=== PATIENT | male | born 1945 | race Two or more races ===

== ENCOUNTER 2018-06-03 13:23 | Inpatient (IN) | payer OTHER ==
[~2018-06-03] VITALS: Ht 177.8 cm; Wt 90.7 kg
[~2018-06-03 13:23] MED LIST: GLIMEPIRIDE4 MG PO; INVANZ1 GM IV; LIPITOR20 MG PO; NEURONTIN800 MG PO; VANCOMYCIN1.25 GM/21 IV; VASOTEC5 MG PO; XARELTO20 MG PO
[2018-06-03] MEDS ORDERED: COUMADIN7.5 MG PO (13:31)
[2018-06-03] MEDS ORDERED: MELATONIN10 MG PO (13:31)
[2018-06-03] MEDS ORDERED: COUMADIN10 MG PO (13:31)
[2018-06-03] MEDS ORDERED: GLUCOTROL10 MG PO (13:32)
[2018-06-03] MEDS ORDERED: TAMS0.4C PO (13:32)
[2018-06-03] MEDS ORDERED: PROSCAR5 MG PO (13:33)
--- NOTE | 2018-06-03 13:33 | NUR ---
PT REFERIDO POR DR FEMI DUBON PARA ADMISION POR [facility] EN [facility].
== END 2018-06-08 23:13 | disposition home or self-care (01) | DRG 638 ==
LOC: ER 13:23 → SEC-K 21:15 → MEDI 21:15
PROVIDERS: ADMIT Internal Medicine
PROC: CF261ZZ Tomographic (Tomo) Nuclear Medicine Imaging of Liver and Spleen using Technetium 99m (Tc-99m) (ICD-10-PCS; principal; 2018-06-07)
DX: E11.621 Type 2 diabetes mellitus with foot ulcer (principal); L97.528 Non-pressure chronic ulcer of other part of left foot with other specified severity; E11.42 Type 2 diabetes mellitus with diabetic polyneuropathy; Z16.12 Extended spectrum beta lactamase (ESBL) resistance; I10 Essential (primary) hypertension; N40.0 Benign prostatic hyperplasia without lower urinary tract symptoms; D69.49 Other primary thrombocytopenia; D70.8 Other neutropenia; D72.818 Other decreased white blood cell count

== ENCOUNTER 2018-08-02 10:15 | Inpatient (IN) | payer OTHER ==
[~2018-08-02] VITALS: Ht 180.3 cm; Wt 90.7 kg
[~2018-08-02 10:15] MED LIST changes: +COUMADIN10 MG PO; +COUMADIN7.5 MG PO; +GLUCOTROL10 MG PO; +MELATONIN10 MG PO; +PROSCAR5 MG PO; +TAMS0.4C PO
--- NOTE | 2018-08-02 10:21 | NUR ---
PACIENTE MASCULINO ALERTA,ORIENTADO EN LEANDRO ESFERAS,AMBULANDO SIN DIFICULTAD,EN COMPANIA DE FAMILIAR. PACIENTE REFIERE REFERIDO MEDICO DE DR.LOPEZ DUBON PARA ADMISION POR [facility] INFECTADA EN [facility].
[2018-08-02] MEDS ORDERED: LUMIGAN2.5 M1 (10:27)
[2018-08-02] MEDS ORDERED: ISTALOL2.5 ML (10:28)
--- NOTE | 2018-08-02 11:40 | NUR ---
SE RECIBE PTE MASCULINO DE 73 YRS ALERTA CONCIENTE Y TRANQUILON EN COMPANIA DE FAMIILIAR. PTE ES EVALUADA POR EL , ROBBNO QUIEN ORDENA TRATMAIETO LA CUAL SE EJECUTA POR MS.BIRRIEL RAMOS . SE MANTIENE EN OBSERVACIONY SE ACOMODA EN ISOLACION ROOM A EL PTE . SE MANTIENE BAJO OBSERVACION POR CAMBIOS EN VARGAS CONDICION.
== END 2018-08-03 14:44 | disposition home or self-care (01) | DRG 638 ==
LOC: ER 10:15 → MEDI 21:10 → SEC-K 21:10 → MEDI 21:53
PROVIDERS: ADMIT Internal Medicine
DX: E11.621 Type 2 diabetes mellitus with foot ulcer (principal); L97.528 Non-pressure chronic ulcer of other part of left foot with other specified severity; B96.5 Pseudomonas (aeruginosa) (mallei) (pseudomallei) as the cause of diseases classified elsewhere; B95.2 Enterococcus as the cause of diseases classified elsewhere; B96.1 Klebsiella pneumoniae [K. pneumoniae] as the cause of diseases classified elsewhere; Z16.12 Extended spectrum beta lactamase (ESBL) resistance; E11.40 Type 2 diabetes mellitus with diabetic neuropathy, unspecified; N40.0 Benign prostatic hyperplasia without lower urinary tract symptoms; D69.6 Thrombocytopenia, unspecified; D72.818 Other decreased white blood cell count; E78.49 Other hyperlipidemia; I73.89 Other specified peripheral vascular diseases; Z79.4 Long term (current) use of insulin

== ENCOUNTER 2021-01-03 14:47 | Inpatient (IN) | payer OTHER ==
[~2021-01-03] VITALS: Ht 177.8 cm; Wt 94.3 kg
[~2021-01-03 14:47] MED LIST changes: +ISTALOL2.5 ML; +LUMIGAN2.5 M1
[2021-01-03] MEDS ORDERED: ACTOS30 MG PO (15:09)
[2021-01-03] MEDS ORDERED: PRANDIN (15:10)
--- NOTE | 2021-01-03 15:10 | NUR ---
SE RECIBE PACIENTE Y ALERTA REFIERE RADHA ULCERA EN EL TOBILLO JUAN LA HERIDA ESTA SUPURANDO. SE MONITOREA S/V Y SE UBICA EN ANGELA DE ESPERA.
--- NOTE | 2021-01-03 17:24 | NUR ---
EVALUA PTE. SE ORIENTA SOBRE ORDENES MEDICAS Y TRATAMIENTO. SE EXTRAEN MUESTRAS, SE CANALIZA PTE Y SE ADMINISTRAN MEDICAMENTOS BAJO MEDIDAS ASEPTICAS. SE REALIZA DXT Y SE MANTIENE PTE BAJO OBSERVACION.
[2021-01-06] MEDS ORDERED: REPAGLINIDE1 MG (08:03)
[2021-01-28] MEDS ORDERED: LIPITOR20 MG PO (15:55)
[2021-01-28] MEDS ORDERED: TAMS0.4C PO (15:55)
[2021-01-28] MEDS ORDERED: VASOTEC5 MG PO (15:56)
[2021-01-28] MEDS ORDERED: NEURONTIN800 MG PO (15:56)
[2021-01-28] MEDS ORDERED: ACTOS30 MG PO (15:56)
[2021-01-28] MEDS ORDERED: PROSCAR5 MG PO (15:57)
== END 2021-01-28 17:02 | disposition home or self-care (01) | DRG 638 ==
LOC: ER 14:47 → SURG 19:42 → SEC-K 19:42 → SURG 22:48 → SURH 01-10 14:45
PROVIDERS: ADMIT Internal Medicine; ATTEND Internal Medicine
PROC: 0JDR3ZZ Extraction of Left Foot Subcutaneous Tissue and Fascia, Percutaneous Approach (ICD-10-PCS; principal; 2021-01-08)
PROC: 8E0ZXY6 Isolation (ICD-10-PCS; 2021-01-10)
PROC: 0JDR3ZZ Extraction of Left Foot Subcutaneous Tissue and Fascia, Percutaneous Approach (ICD-10-PCS; 2021-01-22)
DX: E11.621 Type 2 diabetes mellitus with foot ulcer (principal); Z16.12 Extended spectrum beta lactamase (ESBL) resistance; L97.328 Non-pressure chronic ulcer of left ankle with other specified severity; E11.65 Type 2 diabetes mellitus with hyperglycemia; Z79.4 Long term (current) use of insulin; I10 Essential (primary) hypertension; B95.62 Methicillin resistant Staphylococcus aureus infection as the cause of diseases classified elsewhere; Z79.01 Long term (current) use of anticoagulants; D69.49 Other primary thrombocytopenia; E11.42 Type 2 diabetes mellitus with diabetic polyneuropathy; Z20.822 Contact with and (suspected) exposure to COVID-19; N17.8 Other acute kidney failure
CPT/HCPCS: 73725

== ENCOUNTER 2021-04-23 14:04 | Outpatient (CLI) | payer OTHER ==
[~2021-04-23 14:04] MED LIST changes: +ACTOS30 MG PO; +PRANDIN; +REPAGLINIDE1 MG
== END 2021-04-23 14:15 | disposition home or self-care (01) ==
LOC: LAB 14:04
PROVIDERS: ATTEND Specialist
DX: L02.416 Cutaneous abscess of left lower limb (principal)